=== PATIENT | male | born 1965 | race Caucasian/White ===

== ENCOUNTER 2024-12-09 12:43 | Outpatient (CLI) | payer OTHER, SELFPAY ==
--- NOTE | 2024-12-09 13:00 | MR_ITS ---
[address] [address] Phone:?[phone] Fax:?[phone] Referring Physician Information: Boby Vernon M.D. [id number] [facility] [address] Phone:?[phone] Fax:?[phone] Patient:Colin Baker D.O.B:?1965 Sex:?Male Phone:? [facility] MRN:?[id number] Exam Date:?12/09/2024 EXAM: MRI of the RIGHT KNEE, without contrast CLINICAL INFORMATION: Male, 59 years old, with right knee pain. INDICATION: Evaluate for internal derangement. PRIOR SURGERY: None reported. PLAIN FILMS: Knee radiographs dated 11/18/2024. COMPARISONS: No prior MRIs available. TECHNICAL INFORMATION: Using a 1.5T MR scanner and a localizing surface coil: sagittals: PD, T2FS coronals: PD, T2, STIR axials: PD, T2FS SEDATION: None CONTRAST: None FINDINGS: Knee joint: Effusion: Small right knee effusion. Popliteal cyst: None. Loose bodies: None. Subcutaneous and extra-articular soft tissues: Unremarkable. Ligaments: ACL: Intact ACL anteromedial and posterolateral bundles, without sprain or tear. PCL: Intact PCL, without acute or chronic injury. MCL: Intact MCL superficial and deep layers, without injury. LCL: Intact LCL, without injury. Posterolateral corner: Mild popliteus tendinopathy without tear. Biceps femoris, iliotibial band, popliteofibular ligament and lateral gastrocnemius are intact. Posteromedial corner: No posteromedial corner soft tissue injury. Semimembranosus, pes anserine tendons and posterior oblique ligament are without injury, tendinopathy or bursitis. Extensor mechanism: Patellar tendon: Mild proximal patellar tendinopathy without tear. Quadriceps tendon: Intact, without tendinopathy. Retinacula: Medial and lateral retinacula are intact. Fat pads: Unremarkable infrapatellar Hoffa's, quadriceps and prefemoral fat pads. Medial compartment: Medial meniscus: Full thickness radial tear of the posterior horn/root measuring 1.1 cm (sagittal T2FS series 6 images 18-20). There is also abnormal signal and irregularity throughout the posterior meniscocapsular junction. Meniscal extrusion measures 4 mm. No parameniscal cyst. Medial femoral condyle & tibial plateau: Broad-based mild grade II chondromalacia throughout the central, weightbearing aspect of the medial compartment, without reactive osseous changes. Lateral compartment: Lateral meniscus: No articular surface, meniscosynovial junction or root tear. No displacement, extrusion or parameniscal cyst. Lateral femoral condyle: No chondromalacia or osteochondral abnormality. Lateral tibial plateau: No chondromalacia or osteochondral abnormality. Patellofemoral joint: Patella: Broad-based grade II/III chondromalacia the medial facet and median ridge, with mild marginal osteophytosis. Trochlea: Broad-based grade II/III chondromalacia the medial facet and central sulcus, with mild marginal osteophytosis. Proximal tibiofibular joint: Unremarkable, without evidence of ligament sprain injury, joint effusion or adjacent marrow edema. Bones: No stress/occult fractures or other marrow edema/pathology. IMPRESSION: 1. Full-thickness radial tear of the posterior horn/root of the medial meniscus measuring 1.1 cm, with 4 mm of meniscal extrusion and a superimposed posterior meniscocapsular junction sprain. This tear is expected to diminish the intrinsic meniscal load sharing function. 2. Mild osteoarthritis of the patellofemoral compartment. 3. Mild chondromalacia of the medial compartment. 4. Mild patellar and popliteus tendinopathy, without tear. 5. Small knee joint effusion. No popliteal (Lopez's) cyst. 6. No cruciate or collateral ligament sprain/tear. 7. No lateral meniscal tear or osteochondral abnormality of the lateral compartment. BC Electronically signed on 12/10/2024 7:55:00 AM by Abram Villagran M.D.
== END 2024-12-09 12:44 | disposition home or self-care (01) ==
LOC: MRI 12:46
PROVIDERS: Visit Provider Orthopaedic Surgery Sports Medicine
DX: M25.561 Pain in right knee (principal); S83.241A Other tear of medial meniscus, current injury, right knee, initial encounter; M17.11 Unilateral primary osteoarthritis, right knee; M94.261 Chondromalacia, right knee; M25.461 Effusion, right knee; S89.91XA Unspecified injury of right lower leg, initial encounter
CPT/HCPCS: 73721; T1013